=== PATIENT | female | born 1985 | race Caucasian/White ===

== ENCOUNTER 2025-03-02 07:14 | Outpatient (CLI) | payer OTHER ==
[2025-03-02 07:47] LABS: BASO % 1.0 % (0.1-1.2); EOS # 0.18 (0.04-0.54); EOS % 4.6 % (0.7-7.0); LYMPH # 1.98 (1.18-3.74); LYMPH % 50.9 % (19.3-53.1); MEAN PLATELET VOLUME 10.60 fl (9.4-12.4); MONO # 0.22 (0.24-0.82); MONO % 5.7 % (4.7-12.5); NEUT # 1.46 (1.56-6.13); NEUT % 37.5 % (34.0-71.1); RED CELL DISTRIBUTION WIDTH 16.2 % (11.6-14.4)
[2025-03-02 08:44] LABS: ALT/SGPT 22 U/L (12-78); AST/SGOT 9 U/L (15-37); BILIRUBIN TOTAL 0.41 mg/dL (0.3-1.2); BUN CREA RATIO 16 (7.0-25.0); CHOL HDL RATIO 2.8 (0-5.0); CREATININE SERUM 0.58 mg/dL (0.55-1.02); GFR 114.56; GLOBULINA 3.7 G/DL (2.4-3.5); GLUCOSE FASTING 87 mg/dL (65-100); HDL 70 mg/dl (40-60); LDL 110 mg/dl (0-130); OSMOLALITY SERUM 279 MOSM/KG (275-295); T4 TOTAL 7.39 UG/DL (4.8-13.9); TSH 1.130 uIU/mL (0.358-3.74); VLDL 16 (0-39)
[2025-03-02 10:09] LABS: T3 TOTAL 1.09 ng/ml (0.846-2.02); VITAMIN D3 25 HYDROXY 28.7 ng/ml (30-120)
[2025-03-02 12:14] LABS: URINE BACTERIA 251.9 uL (0.0-1933); URINE EPITHELIAL CELLS 5.6 uL (0.0-38.8); URINE WBC 4.2 uL (0.0-23.2)
[2025-03-02 12:23] LABS: URINE CAST 0.14 uL (0.0-1.40); URINE RBC 0.8 uL (0.0-20.8)
[2025-03-02 12:39] LABS: URINE APPEARANCE Clear; URINE BILIRRUBIN Negative (NEGATIVE); URINE BLOOD Negative; URINE COLOR Yellow; URINE GLUCOSE Negative (NEGATIVE); URINE KETONE Negative (NEGATIVE); URINE LEUKOCYTE Negative; URINE NITRATE Negative; URINE PROTEIN Negative (NEGATIVE); URINE UROBILINOGEN 0.2 E.U./dl
== END 2025-03-02 07:18 | disposition home or self-care (01) ==
LOC: LAB 07:14
DX: E03.9 Hypothyroidism, unspecified (principal); Z12.11 Encounter for screening for malignant neoplasm of colon; D64.9 Anemia, unspecified; I10 Essential (primary) hypertension; N39.0 Urinary tract infection, site not specified; E55.9 Vitamin D deficiency, unspecified; E78.5 Hyperlipidemia, unspecified; E11.9 Type 2 diabetes mellitus without complications